=== PATIENT | male | born 1985 | race African-American/Black ===

== ENCOUNTER 2021-03-24 14:22 | Emergency (ER) | payer OTHER, SELFPAY ==
[~2021-03-24] VITALS: Ht 167.6 cm; Wt 76.0 kg
[2021-03-24] MEDS ORDERED: ACETAMINOPHEN 325 MG TAB PO ONE (16:25)
[2021-03-24] MEDS ORDERED: ONDANSETRON 4MG/2ML VIAL IV ONE (16:25)
[2021-03-24] MEDS ORDERED: KETOROLAC 30 MG/ML 1ML VIAL IV ONE (16:25)
[2021-03-24 16:46] LABS: BASO % 0.5 % (0.0-1.0); EOS # 0.2 10^3/uL (0.0-0.5); EOS % 3.2 % (0.0-3.0); HEMATOCRIT 45.1 % (42.0-52.0); HEMOGLOBIN 14.2 g/dl (13.5-17.5); LYMPH # 2.4 10^3/uL (1.5-5.0); LYMPH % 39.8 % (24.0-44.0); MEAN CORPUSCULAR HEMOGLOBIN 28.5 pg (27.0-33.0); MEAN CORPUSCULAR HGB CONC 31.5 g/dl (32.0-36.5); MEAN CORPUSCULAR VOLUME 90.4 fl (80.0-96.0); MONO # 0.4 10^3/uL (0.0-0.8); MONO % 6.8 % (2.0-8.0); NEUTROPHILS # 2.9 10^3/uL (1.5-8.5); NEUTROPHILS % 49.4 % (36.0-66.0); PLATELET COUNT, AUTOMATED 254 10^3/uL (150-450); RED BLOOD COUNT 4.99 10^6/uL (4.30-6.10); WHITE BLOOD COUNT 5.9 10^3/uL (4.0-10.0)
[2021-03-24 17:06] LABS: BLOOD UREA NITROGEN 14 MG/DL (7-18); CALCIUM LEVEL 9.4 MG/DL (8.5-10.1); CARBON DIOXIDE LEVEL 26 MEQ/L (21-32); CHLORIDE LEVEL 106 MEQ/L (98-107); CREATININE FOR GFR 1.05 MG/DL (0.70-1.30); GLOMERULAR FILTRATION RATE > 60.0 (>60); GLUCOSE, FASTING 90 MG/DL (70-100); POTASSIUM SERUM 4.1 MEQ/L (3.5-5.1); SODIUM LEVEL 138 MEQ/L (136-145)
[2021-03-24 17:09] LABS: MONO SCRN NEGATIVE (NEGATIVE)
[2021-03-24] MEDS ORDERED: KETO10TAB PO (17:57)
[2021-03-24] MEDS ORDERED: ONDA4TAB6 PO (17:57)
[2021-03-24 18:55] VITALS: BP 144/81
== END 2021-03-24 19:07 | disposition home or self-care (01) ==
LOC: M ED 14:22
DX: J02.9 Acute pharyngitis, unspecified (principal); R51.9 Headache, unspecified; R11.0 Nausea
CPT/HCPCS: 80048; 85025; 86308; 87880; 96374; 96375; 99284; J1885; J2405; U0003